=== PATIENT | female | born 1995 | race Caucasian/White ===

== ENCOUNTER 2017-03-10 01:56 | Emergency (ER) | payer OTHER ==
--- NOTE | 2017-03-10 05:19 | ED ORDER SUMMARY ---
..... Patient: EPHRAIM ROSE OrderSheet [facility] VisitID: [id number] [place] [address] 21y, F Registration Date/Time: 03/10/2017 ORDER SHEET Weight: 92.9 kg (stated) Allergies: Macrobid GENERAL ORDERS: CBC w Diff Urgent (02:48 03/10/2017 Carmen Lance) (Ack 2:56 RKaruga) (4:38 KANCHANanders R.N.) CMP Urgent (02:48 03/10/2017 Carmen Lance) (Ack 2:56 RKaruga) (4:38 Melvins R.N.) UA-Culture if indicated Urgent (02:48 03/10/2017 Carmen Lance) (Ack 2:56 RKaruga) (4:38 Melvins R.N.) Urine Urgent (02:48 03/10/2017 Carmen Lance) (Ack 2:56 RKaruga) (4:38 KANCHANanders R.N.) Urine Drug Screen Urgent (02:48 03/10/2017 Carmen Lance) (Ack 2:56 RKaruga) (4:38 KANCHANanders R.N.) Ethyl Alcohol Urgent (02:48 03/10/2017 Carmen Lance) (Ack 2:56 RKaruga) (4:38 KANCHANanders R.N.) MEDICATION ORDERS: HydrOXYzine IM 50 mg (NOW, Do not administer intravenously) (02:21 03/10/2017 Abimael Cornejo verbal order read back to Carmen Lance) (2:22 Abimael Cornejo) IV FLUIDS: IV NS : initial bolus none -, then 1000 mL/hr for X1 (NOW) (02:48 03/10/2017 Carmen Lance) (3:49 HSoule) ORDER SHEET NOTES: [Electronically signed by Jonna Toscano R.N. (06:31 03/10/2017)] [Electronically signed by Ramin Castellano Dr. (09:50 03/11/2017)] [Electronically locked/signed by Jonna Toscano R.N. (06:31 03/10/2017)]
--- NOTE | 2017-03-10 05:19 | ED NURSING NOTES ---
Clinical Report - Nurses [facility] [address] [place] [address] 03/10/2017 1:57 Patient: EPHRAIM ROSE TRIAGE Triage time 0155. Acuity: LEVEL 3. Chief Complaint: SHORTNESS OF BREATH. --02:19 Sonma Mcgovern R.N. 02:08 03/10/17. BP: 142/103. HR: 146 (regular and normal rate). RR: 18 (regular and unlabored). O2 saturation: 96% on nasal cannula at 2 liters/minute. Temp: 98.8 F (oral). Pain level now: 0/10. --02:19 Sonam Mcgovern R.N. Triage time 0100 late entry - AM. Chief Complaint: SHORTNESS OF BREATH and DIFFICULTY BREATHING. --03:54 Aria Pereyra R.N. Weight: 92.9 kg stated. Height/Length: 63 inches Per Patient. BMI: 36.3. --01:59 Sonam Mcgovern R.N. Medications Albuterol Sulfate Inhalation 2 puffs, PRN. --02:10 Sonam Mcgovern R.N. Allergies Macrobid. Definite Moderate(vomiting) --02:11 Sonam Mcgovern R.N. History Arrived by EMS. Historian: patient. Unaccompanied. Primary physician (Greer). This started just prior to arrival. ( Pt consumed large amt of alcohol started c/o SOB and having panic attack). PAST MEDICAL HX: Immunizations: up-to-date. Last normal menstrual period unknown. SOCIAL HX: Never smoker. Occasional alcohol use; consumes liquor occasionally. Patient smells of ETOH in the emergency department. No drug use. No infectious disease exposure. ABUSE ASSESSMENT: No report of abuse. SELF HARM ASSESSMENT: A self harm assessment was performed. The patient answered "no" to the question "Have you recently felt down, depressed, or hopeless?", "Have you noticed less interest or pleasure in doing things?", "Do you have thoughts of harming or killing yourself?", "Are you here because you tried to hurt yourself?", "Have you ever tried to hurt yourself before today?", "Have you recently had thoughts about harming or killing others?" and "Do you have any dangerous items in your possession?". FALL RISK ASSESSMENT: Fall risk assessment completed. No fall risk identified. NUTRITIONAL RISK ASSESSMENT: The nutritional risk assessment revealed no deficiencies. FUNCTIONAL ASSESSMENT: Functional assessment: no impairments noted. LEARNING NEEDS ASSESSMENT: The learning needs assessment revealed no barriers. SKIN INTEGRITY ASSESSMENT: Skin integrity risk assessment completed. No skin integrity risk identified. --02:19 Sonam Mcgovern R.N. Arrived by EMS. Historian: patient. This started last night. --03:54 Aria Pereyra R.N. PROBLEMS: Asthma. --02:12 Sonam Mcgovern R.N. ADDITIONAL SURGERIES: no known surgeries. Interventions ID band on patient. --02:19 Sonam Mcgovern R.N. PHYSICAL ASSESSMENT To room via stretcher. GENERAL / NEURO / PSYCH: Alert. Oriented X 4. Appears anxious and in distress. HEENT: Mucous membranes are pink. RESPIRATORY: Moderate respiratory distress. The patient can speak a few words at a time. Mild accessory muscle use. Nonproductive cough. Decreased breath sounds in the bases bilaterally. Breath sounds within normal limits. CVS: Normal sinus rhythm noted. Capillary refill less than 2 seconds. GI / : Abdomen soft and nontender. Bowel sounds within normal limits. SKIN: Skin is warm and dry. Normal skin turgor. --02:20 Sonam Mcgovern R.N. NURSING PROGRESS NOTES Patient gowned. Two patient identifiers checked. Call light placed in reach. Side rails up x 2. Bed placed in lowest position. Brakes of bed on. --02:21 Sonam Mcgovern R.N. Patient ready for evaluation- chart flagged. --02:21 Sonam Mcgovern R.N. 02:22 03/10/2017 Hydroxyzine IM 50 mg given. Given in the right gluteus cuco. Allergies verified, confirmed 5 rights and sedative warning given to the patient. --02:22 Shaniqua, Sonam, R.N. Care transferred and report given (Jonna SELF). --02:23 Sonam Mcgovern R.N. 03:20 03/10/2017 Site #1 started via IV in the right antecubital space with an 20g angiocath, with aseptic technique and good blood return; one attempt. Blood drawn: rainbow set. Labeled in the presence of the patient and sent to the lab. Saline lock flushed with 10 mL saline. --03:48 Jovan, Ruthann 03:25 03/10/2017 Started bag #1 1000 mL IV Fluids IV NS (Saline); at 1000 mL/hr over 1 hour(s) via site #1. Allergies verified and confirmed 5 rights. IV patency established. IV site checked: no pain, redness, or swelling. IV flushed thoroughly pre- and post-medication administration. --03:49 Ruthann Aldana 05:18 03/10/17. BP: 114/70 (regular adult cuff) taken on the left arm, while sitting. HR: 90. RR: 18. O2 saturation: 97% on room air. --05:21 Jonna Toscano R.NElma 05:21 03/10/17. Pain level now: 0/10. --05:21 Jonna Toscano R.N. 04:31 03/10/2017 IV Fluids IV NS Discontinued: bag #1 completed. Total amount infused: 1000 mL. IV patency established. IV site checked: no pain, redness, or swelling. IV flushed thoroughly. --06:31 Jonna Toscano R.N. 05:21 03/10/17. The patient is calm and resting quietly. Overall patient status is improved. RESPIRATORY: No respiratory distress. Breath sounds normal. SKIN: Skin is warm. Skin color within normal limits. --05:21 Jonna Toscano R.N. 05:25 03/10/17. ( Patient in clear sight of nurses station, she is sleeping, easily aroused, requested water, this was given. Offered warm blanket, she declined). --05:25 Jonna Toscano R.N. 02:00 03/10/17. BP: 122/84 (regular adult cuff) taken on the left arm. HR: 96. O2 saturation: 96% on room air. Pain level now: 0/10. --05:26 Jonna Toscano R.N. 02:15 03/10/17. BP: 122/65 (regular adult cuff) taken on the left arm. O2 saturation: 100% on room air. Pain level now: 0/10. --05:27 Jonna Toscano R.N. 02:30 03/10/17. BP: 124/72. O2 saturation: 100%. --05:27 Jonna Toscano R.N. 02:45 03/10/17. BP: 103/74. O2 saturation: 100%. --05:28 Jonna Toscano R.N. 03:00 03/10/17. BP: 106/53. O2 saturation: 100% on room air. --05:28 Jonna Toscano R.N. 03:15 03/10/17. BP: 106/49. O2 saturation: 99% on room air. --05:28 Jonna Toscano R.N. 03:45 03/10/17. BP: 115/51. O2 saturation: 100% on room air. --05:29 Jonna Toscano R.N. 04:00 03/10/17. BP: 115/60 (regular adult cuff) taken on the left arm. O2 saturation: 100% on room air. --05:29 Jonna Toscano R.N. ( Patient given phone to use to try and call someone for a ride). --05:32 Jonna Toscano R.N. ( Father at patients bedside). --05:33 Jonna Toscano R.N. DISPOSITION / DISCHARGE 05:48 03/10/17. Departure time: 06:00 Mar 10 2017. Condition at departure: improved. No learning barriers present. Discharge instructions provided and reviewed with the patient and parent. Reviewed medication(s) side effects, precautions, dosing and course information. Prescription(s) given to the patient. Work note given. Patient and parent verbalized understanding. Written instructions provided in Malaysian. The patient was discharged by the physician. She was discharged home and accompanied by parent. She left the Emergency Department in a wheelchair and via private vehicle. Parent driving. --06:29 Jonna Toscano R.N. 05:55 03/10/2017 Site #1 removed upon discharge. Bandaid applied. --06:27 Jonna Toscano R.N. 06:26 03/10/17. BP: 104/50 (regular adult cuff) taken on the left arm. HR: 91. RR: 16. O2 saturation: 100% on room air. Temp: 98.3 F (oral). Pain level now: 0/10. --06:29 Jonna Toscano R.N. Locked/Released at 03/10/2017 6:31 by Jonna Toscano R.N.
--- NOTE | 2017-03-10 05:19 | ED CLINICAL REPORT ---
Clinical Report - Physicians/Mid Levels [facility] [address] [place] [address] 03/10/2017 1:57 Patient: EPHRAIM ROSE Arrived- By ambulance. Historian- EMS personnel. HISTORY OF PRESENT ILLNESS Chief Complaint: INTOXICATED. Symptoms started today. Substances abused: Alcohol. Last drink less than 12 hours ago. The patient has been agitated. The symptoms are described as moderate. No injuries noted. Similar symptoms previously: None. Recent medical care: Not recently seen/assessed. REVIEW OF SYSTEMS No chest pain or palpitations. She has had altered mental status. (Intoxicated). All systems otherwise negative, except as recorded above. PAST HISTORY Asthma. SOCIAL HISTORY Never smoker. Occasional alcohol use. No drug use. ADDITIONAL NOTES The nursing notes have been reviewed. PHYSICAL EXAM Vital Signs: 03/10/2017 02:00 BP: 122/84. HR: 96. O2 saturation: 96%. Pain level now: 0/10. Have been reviewed as normal. Appearance: The patient's speech is slurred, the patient is agitated and odor of alcohol is present. Patient in mild distress. Head: Head atraumatic. ENT: Airway intact. Dry mucous membranes present. Neck: Normal inspection. Neck supple. CVS: Normal heart rate and rhythm. Heart sounds normal. Respiratory: No respiratory distress. Breath sounds normal. Abdomen: Soft and nontender. No organomegaly. Skin: Skin warm and dry. Normal skin color. No rash. Extremities: No lower extremity edema. Neuro: Moderately altered mental status: labile. LABS, X-RAYS, AND EKG Laboratory Tests: UA-Culture if indicated: (ANEUDY: 03/10/2017 04:34) ( MsgRcvd 03/10/2017 04:58) Final results Test Result Flag Units (Reference) URINE COLOR YELLOW URINE APPEARANCE CLEAR URINE GLUCOSE NEGATIVE (NEGATIVE) URINE BILIRUBIN NEGATIVE (NEGATIVE) URINE KETONE TRACE (NEGATIVE) URINE SPECIFIC GRAVITY 1.020 (1.010-1.030) URINE PH 6.0 (5.0-8.0) URINE PROTEIN NEGATIVE (NEGATIVE) URINE UROBILINOGEN 0.2 EU/dL (0.2-1.0) URINE NITRITE NEGATIVE (NEGATIVE) URINE BLOOD 1+ (NEGATIVE) URINE LEUK ESTERASE NEGATIVE (NEGATIVE) URINE RBC 0-1 rbc/hpf (0-1) URINE WBC 0-1 wbc/hpf (0-1) URINE EPITHELIAL CELLS 0-1 EPI/hpf (0-5) URINE BACTERIA NONE SEEN (NONE SEEN) URINE COMMENT CULT NOT INDICATED 1+ MUCUSURINE CULTURES ARE SET-UP BASED ON THE FOLLOWING CRITERIA:POSITIVE NITRITEPOSITIVE LEUKOCYTE ESTERASEGREATER THAN 10 WHITE BLOOD CELLSMODERATE (2+) OR GREATER BACTERIA Urine: (ANEUDY: 03/10/2017 04:34) ( [facility] 03/10/2017 04:47) Final results Test Result Flag Units (Reference) URINE NEGATIVE CBC w Diff: (ANEUDY: 03/10/2017 03:00) ( [facility] 03/10/2017 03:55) Final results Test Result Flag Units (Reference) WHITE BLOOD COUNT 10.1 K/uL (4.5-11.5) RED BLOOD COUNT 5.38 H M/uL (4.00-5.20) HEMOGLOBIN 13.9 gm/dL (12.0-16.0) HEMATOCRIT 41.5 % (36.0-46.0) MEAN CELL VOLUME 77 L fL (80-100) MEAN CORPUSCULAR HGB 26 pg (26-34) MEAN CORPUSCULAR HGB CONC 33 g/dL (31-37) RED CELL DISTRIBUTION WIDTH 12.3 % (11.6-14.8) PLATELET COUNT 202 K/uL (150-400) NEUTROPHIL % 75.1 H % (50-75) LYMPH % 18.0 L % (25-40) MONO % 5.9 % (3-14) EOSINOPHIL % 0.6 % (0-4) BASOPHIL % 0.4 % (0-2) Urine Drug Screen: (ANEUDY: 03/10/2017 04:34) ( [facility] 03/10/2017 05:13) Final results Test Result Flag Units (Reference) AMPHETAMINE/METHAMPHETAMINE NEGATIVE (NEGATIVE) BARBITURATE NEGATIVE (NEGATIVE) BENZODIAZEPINE NEGATIVE (NEGATIVE) CANNABINOID NEGATIVE (NEGATIVE) COCAINE NEGATIVE (NEGATIVE) ECSTASY NEGATIVE (NEGATIVE) METHADONE NEGATIVE (NEGATIVE) OPIATE NEGATIVE (NEGATIVE) The urine drug screen is a qualitative screening test fordrug overdose and abuse. All screen results should beconsidered as presumptive.Drugs screened for are as follows:BenzodiazepinesCocaineAmphetamines/MetamphetaminesTHC (Tetrahydrocannabinol)OpiatesBarbituratesEcstasyMethadonePositive results are unconfirmed. For confirmation, notifythe lab for the specimen to be sent to the reference lab.All confirmations must be performed by a differentmethodology.The ingestion of natural herbal and plant productscontaining Ephedra/Ephedra metabolites can produce in urineone or more substances capable of cross reacting withamphetamine/methamphetamine immunoassays. These testsprovide a preliminary result only. A more specificalternative chemical method must be used to obtain aconfirmed analytical result. CMP: (ANEUDY: 03/10/2017 03:00) ( MsgRcvd 03/10/2017 04:08) Final results Test Result Flag Units (Reference) GLUCOSE 124 H mg/dL (70-110) BUN 12 mg/dL (7-18) CREATININE 0.8 mg/dL (0.6-1.3) Estimated GFR >60 mL/min Estimated GFR- >60 mL/min Note: Persistent reduction over 3 months in eGFR<60 mL/min/1.73 m2 defines CKD. Patients with eGFR values>=60 mL/min/1.73 m2 may also have CKD if evidence ofpersistent proteinuria. Additional information may be foundat www.kidney.org. SODIUM 145 mmol/L (136-145) POTASSIUM 3.0 L mmol/L (3.5-5.1) CHLORIDE 109 H mmol/L (98-107) CARBON DIOXIDE 22 mmol/L (21-32) CALCIUM 8.9 mg/dL (8.5-10.1) TOTAL PROTEIN 7.6 g/dL (6.4-8.2) ALBUMIN 4.0 g/dL (3.3-5.0) BILIRUBIN, TOTAL 0.3 mg/dL (0.0-1.0) ALKALINE PHOSPHATASE 83 U/L (46-116) AST (SGOT) 15 U/L (15-37) ALT (SGPT) 21 U/L (12-78) ETHYL ALCOHOL 95 H mg/dL (3-10) . PROGRESS AND PROCEDURES Disposition: Discharged home in good condition. Condition: good. CLINICAL IMPRESSION Uncomplicated alcohol intoxication. No alcohol intoxication with delirium or alcohol dependence. Anxiety reaction with hyperventilation. INSTRUCTIONS No alcohol. Your Current Medications: CONTINUE TAKING THE FOLLOWING MEDICATIONS: Albuterol Sulfate Inhalation : 2 puffs PRN. Prescription Medications: Alprazolam 0.5 mg: take 1 orally every 8 hours as needed for anxiety. Dispense fifteen (15). No refill. Follow-up: Follow up with your doctor in about three days. Call for an appointment. Screening today revealed the patient's blood pressure to be in the normal range. (Electronically signed by Ramin Castellano Dr. 03/11/2017 9:50)
--- NOTE | 2017-03-10 05:19 | ED ORDER SUMMARY ---
..... Patient: EPHRAIM ROSE OrderSheet [facility] VisitID: [id number] [place] [address] 21y, F Registration Date/Time: 03/10/2017 ORDER SHEET Weight: 92.9 kg (stated) Allergies: Macrobid GENERAL ORDERS: CBC w Diff Urgent (02:48 03/10/2017 Carmen Lance) (Ack 2:56 RKaruga) (4:38 KANCHANanders R.N.) CMP Urgent (02:48 03/10/2017 Carmen Lance) (Ack 2:56 RKaruga) (4:38 Melvins R.N.) UA-Culture if indicated Urgent (02:48 03/10/2017 Carmen Lance) (Ack 2:56 RKaruga) (4:38 Melvins R.N.) Urine Urgent (02:48 03/10/2017 Carmen Lance) (Ack 2:56 RKaruga) (4:38 KANCHANanders R.N.) Urine Drug Screen Urgent (02:48 03/10/2017 Carmen Lance) (Ack 2:56 RKaruga) (4:38 KANCHANanders R.N.) Ethyl Alcohol Urgent (02:48 03/10/2017 Carmen Lance) (Ack 2:56 RKaruga) (4:38 KANCHANanders R.N.) MEDICATION ORDERS: HydrOXYzine IM 50 mg (NOW, Do not administer intravenously) (02:21 03/10/2017 Abimael Cornejo verbal order read back to Carmen Lance) (2:22 Abimael Cornejo) IV FLUIDS: IV NS : initial bolus none -, then 1000 mL/hr for X1 (NOW) (02:48 03/10/2017 Carmen Lance) (3:49 HSoule) ORDER SHEET NOTES: [Electronically signed by Jonna Toscano R.N. (06:31 03/10/2017)] [Electronically signed by Ramin Castellano Dr. (09:50 03/11/2017)] [Electronically locked/signed by Jonna Toscano R.N. (06:31 03/10/2017)]
--- NOTE | 2017-03-11 09:50 | ED MED RECONCILIATION SUMMARY ---
Patient: EPHRAIM ROSE Medication Reconciliation Report [facility] VisitID: [id number] [address] [place] [address] 21y, F Registration Date/Time: 03/10/2017 Weight: 92.9 kg Height/Length: 63 in. BMI: 36.3 ALLERGIES: Macrobid The patient's Home Medications are listed below: CONTINUE TAKING THE FOLLOWING MEDICATIONS: Albuterol Sulfate Inhalation 2 puffs, PRN The source(s) of the original Home Medication information: Not obtained. The following Medications were given to the patient in the Emergency Department: Hydroxyzine [IM] IM 50 mg, administered: 03/10/2017 2:22:00 AM IV NS IV Fluids bolus 0, then 1000 mL/hr, administered: 03/10/2017 3:25:00 AM The following Medications were prescribed to the patient: Alprazolam 0.5 mg: take 1 orally every 8 hours as needed for anxiety. Dispense fifteen (15). No refill. -- Ramin Castellano Dr.
--- NOTE | 2017-03-11 09:50 | ED DISCHARGE INSTRUCTIONS ---
Patient: EPHRAIM ROSE General Instructions [facility] VisitID: [id number] [place] [address] 21y, F Registration Date/Time: 03/10/2017 Uncomplicated alcohol intoxication. No alcohol intoxication with delirium or alcohol dependence. Anxiety reaction with hyperventilation. INSTRUCTIONS No alcohol. Your Current Medications: CONTINUE TAKING THE FOLLOWING MEDICATIONS: Albuterol Sulfate Inhalation : 2 puffs PRN. Prescription Medications: Alprazolam 0.5 mg: take 1 orally every 8 hours as needed for anxiety. Dispense fifteen (15). No refill. Follow-up: Follow up with your doctor in about three days. Call for an appointment. Screening today revealed the patient's blood pressure to be in the normal range. ADDITIONAL INFORMATION Alcohol Intoxication Alcohol intoxication occurs when you drink alcohol faster than your liver can remove it from your system. Alcohol intoxication affects your judgment and coordination. Very high blood alcohol levels can cause coma, very slow breathing and even . If you drink alcohol every day, this may gradually cause permanent damage to your liver, brain, heart, pancreas and other organs. Alcohol use during may cause permanent damage to the growing baby. Home Care: Do not drink any more alcohol. DO NOT DRIVE until all effects of the alcohol have worn off. Get lots of rest over the next few days. Drink plenty of water and other non-alcoholic liquids. Try to eat regular meals. If you have been drinking heavily on a daily basis, you may go through alcohol withdrawl. This is also called the shakes or DTs. The usual symptoms last 3 to 4 days and may include nervousness, shakiness, nausea, sweating or sleeplessness. During this time, it is best that you stay with family or friends who can help and support you. You can also admit yourself to a residential detox program. If your symptoms are severe, contact your doctor for medicines to help. Follow Up: If alcohol is causing a problem in your life, these and other organizations can help you: Alcoholics Anonymous offers support through a self-help fellowship. There are no dues or fees. See the Yellow Pages and call for time and place of meetings. www.aa.org Jose Eduardo-Jeffy offers support to families of alcohol users. 754.758.8224 www.al-anon.org National [place] On Alcoholism And Drug Dependence 438-022-4877 www.ncadd.org There are also inpatient or residential alcohol detox programs. Check the Internet or phonebook Yellow Pages under Drug Abuse & Treatment Centers. Get Prompt Medical Attention if any of the following occur: there) Stress Reaction Anxiety is the feeling we all get when we think something bad might happen. It is a normal response to stress and usually causes only a mild reaction. When anxiety becomes more severe, emotions may interfere with daily life. In some cases, you may not even be aware of what it is youre anxious about! During an anxiety reaction, you may feel like you are helpless, nervous, depressed or irritable. Your body may show signs of anxiety in many ways. You may experience dry mouth, shakiness, dizziness, weakness, trouble breathing, chest pressure, headache, nausea, diarrhea, tiredness, inability to sleep or sexual problems. Home Care: 1) Try to locate the sources of stress in your life. They may not be obvious! These may include: -- Daily hassles of life which pile up (traffic jams, missed appointments, car troubles, etc.) -- Major life changes, both good (new baby, job promotion) and bad (loss of job, loss of loved one) -- Overload: feeling that you have too many responsibilities and can't take care of all of them at once -- Feeling helpless, feeling that your problems are beyond what youre able to solve 2) Notice how your body reacts to stress. Learn to listen to your body signals. This will help you take action before the stress becomes severe. 3) When you can, do something about the source of your stress. (Avoid hassles, limit the amount of change that happens in your life at one time and take a break when you feel overloaded). 4) Unfortunately, many stressful situations cannot be avoided. It is necessary to learn HOW TO MANAGE STRESS better. There are many proven methods that will reduce your anxiety. These include simple things like exercise, good nutrition and adequate rest. Also, there are certain techniques that are helpful: relaxation and breathing exercises, visualization, biofeedback and meditation. For more information about this, consult your doctor or go to a local bookstore and review the many books and tapes available on this subject. Follow Up If you feel that your anxiety is not responding to self-help measures, contact your doctor or make an appointment with a counselor. Get Prompt Medical Attention if any of the following occur: -- Your symptoms get worse -- Chest pain or trouble breathing -- Severe headache not relieved by rest and mild pain reliever -- Rapid or irregular heartbeat, fainting Alprazolam Oral tablet What is this medicine? ALPRAZOLAM (al PRADerrick hong lara) is a benzodiazepine. It is used to treat anxiety and panic attacks. How should I use this medicine? Take this medicine by mouth with a glass of water. Follow the directions on the prescription label. Take your medicine at regular intervals. Do not take it more often than directed. If you have been taking this medicine regularly for some time, do not suddenly stop taking it. You must gradually reduce the dose or you may get severe side effects. Ask your doctor or health in home caregiver for advice. Even after you stop taking this medicine it can still affect your body for several days. Talk to your digital circuit designer regarding the use of this medicine in children. Special care may be needed. What side effects may I notice from receiving this medicine? Side effects that you should report to your doctor or health in home caregiver as soon as possible: allergic reactions like skin rash, itching or hives, swelling of the face, lips, or tongue confusion, forgetfulness depression difficulty sleeping difficulty speaking feeling faint or lightheaded, falls mood changes, excitability or aggressive behavior muscle cramps trouble passing urine or change in the amount of urine unusually weak or tired Side effects that usually do not require medical attention (report to your doctor or health in home caregiver if they continue or are bothersome): change in sex drive or performance changes in appetite What may interact with this medicine? Do not take this medicine with any of the following medications: certain medicines for HIV infection or AIDS ketoconazole itraconazole This medicine may also interact with the following medications: control pills certain macrolide antibiotics like clarithromycin, erythromycin, troleandomycin cimetidine cyclosporine ergotamine grapefruit juice herbal or dietary supplements like kava kava, melatonin, dehydroepiandrosterone, DHEA, Ary's Wort or valerian imatinib, STI-571 isoniazid levodopa medicines for depression, anxiety, or psychotic disturbances prescription pain medicines rifampin, rifapentine, or rifabutin some medicines for blood pressure or heart problems some medicines for seizures like carbamazepine, oxcarbazepine, phenobarbital, phenytoin, primidone What if I miss a dose? If you miss a dose, take it as soon as you can. If it is almost time for your next dose, take only that dose. Do not take double or extra doses. Where should I keep my medicine? Keep out of the reach of children. This medicine can be abused. Keep your medicine in a safe place to protect it from theft. Do not share this medicine with anyone. Selling or giving away this medicine is dangerous and against the law. Store at room temperature between 20 and 25 degrees C (68 and 77 degrees F). Throw away any unused medicine after the expiration date. What should I tell my health care provider before I take this medicine? They need to know if you have any of these conditions: an alcohol or drug abuse problem bipolar disorder, depression, psychosis or other mental health conditions glaucoma kidney or liver disease lung or breathing disease myasthenia gravis Parkinson's disease porphyria seizures or a history of seizures suicidal thoughts an unusual or allergic reaction to alprazolam, other benzodiazepines, foods, dyes, or preservatives or trying to get breast-feeding What should I watch for while using this medicine? Visit your doctor or health in home caregiver for regular checks on your progress. Your body can become dependent on this medicine. Ask your doctor or health in home caregiver if you still need to take it. You may get drowsy or dizzy. Do not drive, use machinery, or do anything that needs mental alertness until you know how this medicine affects you. To reduce the risk of dizzy and fainting spells, do not stand or sit up quickly, especially if you are an older patient. Alcohol may increase dizziness and drowsiness. Avoid alcoholic drinks. Do not treat yourself for coughs, colds or allergies without asking your doctor or health in home caregiver for advice. Some ingredients can increase possible side effects. You have been given the following additional information: Alcohol Intoxication Anxiety Reaction Alprazolam Oral tablet (Electronically signed by Ramin Castellano Dr. 03/11/2017 9:50)
--- NOTE | 2017-03-11 09:50 | ED MAR SUMMARY ---
..... Medication Administration Record [facility] [address] [place] [address] Patient: EPHRAIM ROSE Visit ID: [id number] 21y, F Weight: 92.9 kg Height/Length: 63 in BMI: 36.3 ALLERGIES: Macrobid Given 02:22 03/10/2017 Sonam Mcgovern RShelli Medication Administered: HYDROXYZINE [IM], Dose: 50 mg IM. Medication Ordered: HydrOXYzine IM 50 mg (NOW, Do not administer intravenously). Start 03:25 03/10/2017 Ruthann Aldana,, Stop 04:31 03/10/2017 Jonna Toscano RElmaN. Medication Administered: IV NS (SALINE), Dose: IV Fluids over 1 hour(s), Rate: 1000 mL/hr, Dispensed: 1000 mL bag, Site: #1 right AC. Medication Ordered: IV NS : initial bolus none -, then 1000 mL/hr for X1 (NOW).
--- NOTE | 2017-03-11 09:50 | ED MAR SUMMARY ---
..... Medication Administration Record [facility] [address] [place] [address] Patient: EPHRAIM ROSE Visit ID: [id number] 21y, F Weight: 92.9 kg Height/Length: 63 in BMI: 36.3 ALLERGIES: Macrobid Given 02:22 03/10/2017 Sonam Mcgovern RShelli Medication Administered: HYDROXYZINE [IM], Dose: 50 mg IM. Medication Ordered: HydrOXYzine IM 50 mg (NOW, Do not administer intravenously). Start 03:25 03/10/2017 Ruthann Aldana,, Stop 04:31 03/10/2017 Jonna Toscano RElmaN. Medication Administered: IV NS (SALINE), Dose: IV Fluids over 1 hour(s), Rate: 1000 mL/hr, Dispensed: 1000 mL bag, Site: #1 right AC. Medication Ordered: IV NS : initial bolus none -, then 1000 mL/hr for X1 (NOW).
--- NOTE | 2017-03-11 09:50 | ED DISCHARGE INSTRUCTIONS ---
Patient: EPHRAIM ROSE General Instructions [facility] VisitID: [id number] [place] [address] 21y, F Registration Date/Time: 03/10/2017 Uncomplicated alcohol intoxication. No alcohol intoxication with delirium or alcohol dependence. Anxiety reaction with hyperventilation. INSTRUCTIONS No alcohol. Your Current Medications: CONTINUE TAKING THE FOLLOWING MEDICATIONS: Albuterol Sulfate Inhalation : 2 puffs PRN. Prescription Medications: Alprazolam 0.5 mg: take 1 orally every 8 hours as needed for anxiety. Dispense fifteen (15). No refill. Follow-up: Follow up with your doctor in about three days. Call for an appointment. Screening today revealed the patient's blood pressure to be in the normal range. ADDITIONAL INFORMATION Alcohol Intoxication Alcohol intoxication occurs when you drink alcohol faster than your liver can remove it from your system. Alcohol intoxication affects your judgment and coordination. Very high blood alcohol levels can cause coma, very slow breathing and even . If you drink alcohol every day, this may gradually cause permanent damage to your liver, brain, heart, pancreas and other organs. Alcohol use during may cause permanent damage to the growing baby. Home Care: Do not drink any more alcohol. DO NOT DRIVE until all effects of the alcohol have worn off. Get lots of rest over the next few days. Drink plenty of water and other non-alcoholic liquids. Try to eat regular meals. If you have been drinking heavily on a daily basis, you may go through alcohol withdrawl. This is also called the shakes or DTs. The usual symptoms last 3 to 4 days and may include nervousness, shakiness, nausea, sweating or sleeplessness. During this time, it is best that you stay with family or friends who can help and support you. You can also admit yourself to a residential detox program. If your symptoms are severe, contact your doctor for medicines to help. Follow Up: If alcohol is causing a problem in your life, these and other organizations can help you: Alcoholics Anonymous offers support through a self-help fellowship. There are no dues or fees. See the Yellow Pages and call for time and place of meetings. www.aa.org [employer] Eduardo[employer] offers support to families of alcohol users. 257.802.5248 www.al-anon.org National [place] On Alcoholism And Drug Dependence 367-746-3235 www.ncadd.org There are also inpatient or residential alcohol detox programs. Check the Internet or phonebook Yellow Pages under Drug Abuse & Treatment Centers. Get Prompt Medical Attention if any of the following occur: there) Stress Reaction Anxiety is the feeling we all get when we think something bad might happen. It is a normal response to stress and usually causes only a mild reaction. When anxiety becomes more severe, emotions may interfere with daily life. In some cases, you may not even be aware of what it is youre anxious about! During an anxiety reaction, you may feel like you are helpless, nervous, depressed or irritable. Your body may show signs of anxiety in many ways. You may experience dry mouth, shakiness, dizziness, weakness, trouble breathing, chest pressure, headache, nausea, diarrhea, tiredness, inability to sleep or sexual problems. Home Care: 1) Try to locate the sources of stress in your life. They may not be obvious! These may include: -- Daily hassles of life which pile up (traffic jams, missed appointments, car troubles, etc.) -- Major life changes, both good (new baby, job promotion) and bad (loss of job, loss of loved one) -- Overload: feeling that you have too many responsibilities and can't take care of all of them at once -- Feeling helpless, feeling that your problems are beyond what youre able to solve 2) Notice how your body reacts to stress. Learn to listen to your body signals. This will help you take action before the stress becomes severe. 3) When you can, do something about the source of your stress. (Avoid hassles, limit the amount of change that happens in your life at one time and take a break when you feel overloaded). 4) Unfortunately, many stressful situations cannot be avoided. It is necessary to learn HOW TO MANAGE STRESS better. There are many proven methods that will reduce your anxiety. These include simple things like exercise, good nutrition and adequate rest. Also, there are certain techniques that are helpful: relaxation and breathing exercises, visualization, biofeedback and meditation. For more information about this, consult your doctor or go to a local bookstore and review the many books and tapes available on this subject. Follow Up If you feel that your anxiety is not responding to self-help measures, contact your doctor or make an appointment with a counselor. Get Prompt Medical Attention if any of the following occur: -- Your symptoms get worse -- Chest pain or trouble breathing -- Severe headache not relieved by rest and mild pain reliever -- Rapid or irregular heartbeat, fainting Alprazolam Oral tablet What is this medicine? ALPRAZOLAM (al PRADerrick hong lara) is a benzodiazepine. It is used to treat anxiety and panic attacks. How should I use this medicine? Take this medicine by mouth with a glass of water. Follow the directions on the prescription label. Take your medicine at regular intervals. Do not take it more often than directed. If you have been taking this medicine regularly for some time, do not suddenly stop taking it. You must gradually reduce the dose or you may get severe side effects. Ask your doctor or health home care consultant for advice. Even after you stop taking this medicine it can still affect your body for several days. Talk to your die technician regarding the use of this medicine in children. Special care may be needed. What side effects may I notice from receiving this medicine? Side effects that you should report to your doctor or health home care consultant as soon as possible: allergic reactions like skin rash, itching or hives, swelling of the face, lips, or tongue confusion, forgetfulness depression difficulty sleeping difficulty speaking feeling faint or lightheaded, falls mood changes, excitability or aggressive behavior muscle cramps trouble passing urine or change in the amount of urine unusually weak or tired Side effects that usually do not require medical attention (report to your doctor or health home care consultant if they continue or are bothersome): change in sex drive or performance changes in appetite What may interact with this medicine? Do not take this medicine with any of the following medications: certain medicines for HIV infection or AIDS ketoconazole itraconazole This medicine may also interact with the following medications: control pills certain macrolide antibiotics like clarithromycin, erythromycin, troleandomycin cimetidine cyclosporine ergotamine grapefruit juice herbal or dietary supplements like kava kava, melatonin, dehydroepiandrosterone, DHEA, Ary's Wort or valerian imatinib, STI-571 isoniazid levodopa medicines for depression, anxiety, or psychotic disturbances prescription pain medicines rifampin, rifapentine, or rifabutin some medicines for blood pressure or heart problems some medicines for seizures like carbamazepine, oxcarbazepine, phenobarbital, phenytoin, primidone What if I miss a dose? If you miss a dose, take it as soon as you can. If it is almost time for your next dose, take only that dose. Do not take double or extra doses. Where should I keep my medicine? Keep out of the reach of children. This medicine can be abused. Keep your medicine in a safe place to protect it from theft. Do not share this medicine with anyone. Selling or giving away this medicine is dangerous and against the law. Store at room temperature between 20 and 25 degrees C (68 and 77 degrees F). Throw away any unused medicine after the expiration date. What should I tell my health care provider before I take this medicine? They need to know if you have any of these conditions: an alcohol or drug abuse problem bipolar disorder, depression, psychosis or other mental health conditions glaucoma kidney or liver disease lung or breathing disease myasthenia gravis Parkinson's disease porphyria seizures or a history of seizures suicidal thoughts an unusual or allergic reaction to alprazolam, other benzodiazepines, foods, dyes, or preservatives or trying to get breast-feeding What should I watch for while using this medicine? Visit your doctor or health home care consultant for regular checks on your progress. Your body can become dependent on this medicine. Ask your doctor or health home care consultant if you still need to take it. You may get drowsy or dizzy. Do not drive, use machinery, or do anything that needs mental alertness until you know how this medicine affects you. To reduce the risk of dizzy and fainting spells, do not stand or sit up quickly, especially if you are an older patient. Alcohol may increase dizziness and drowsiness. Avoid alcoholic drinks. Do not treat yourself for coughs, colds or allergies without asking your doctor or health home care consultant for advice. Some ingredients can increase possible side effects. You have been given the following additional information: Alcohol Intoxication Anxiety Reaction Alprazolam Oral tablet (Electronically signed by Ramin Castellano Dr. 03/11/2017 9:50)
--- NOTE | 2017-03-11 09:50 | ED MED RECONCILIATION SUMMARY ---
Patient: EPHRAIM ROSE Medication Reconciliation Report [facility] VisitID: [id number] [address] [place] [address] 21y, F Registration Date/Time: 03/10/2017 Weight: 92.9 kg Height/Length: 63 in. BMI: 36.3 ALLERGIES: Macrobid The patient's Home Medications are listed below: CONTINUE TAKING THE FOLLOWING MEDICATIONS: Albuterol Sulfate Inhalation 2 puffs, PRN The source(s) of the original Home Medication information: Not obtained. The following Medications were given to the patient in the Emergency Department: Hydroxyzine [IM] IM 50 mg, administered: 03/10/2017 2:22:00 AM IV NS IV Fluids bolus 0, then 1000 mL/hr, administered: 03/10/2017 3:25:00 AM The following Medications were prescribed to the patient: Alprazolam 0.5 mg: take 1 orally every 8 hours as needed for anxiety. Dispense fifteen (15). No refill. -- Ramin Castellano Dr.
== END 2017-03-10 06:00 | disposition home or self-care (01) ==
LOC: ED SRH 01:56
DX: F10.129 Alcohol abuse with intoxication, unspecified (principal); F41.1 Generalized anxiety disorder; R06.4 Hyperventilation
CPT/HCPCS: 90004; 90100; 92010; 92760; 92761; 92762; 92763; 92764; 92765; 92766; 92767; 93070; 95059